=== PATIENT | male | born 1960 | race African-American/Black ===

== ENCOUNTER 2016-07-18 07:33 | Emergency (ER) | payer OTHER ==
[~2016-07-18] VITALS: Ht 177.8 cm; Wt 139.3 kg
--- NOTE | 2016-07-18 07:50 | ED GENERAL ADULT ---
History of Present Illness General Chief Complaint: Epistaxis/Nasal Foreign Body Stated Complaint: EPISTAXIS Source: patient Exam Limitations: no limitations Vital Signs & Intake/Output Vital Signs & Intake/Output Vital Signs Date Time Temp Pulse Resp B/P Pulse O2 O2 Flow FiO2 Ox Delivery Rate 07/18 0813 146/83 07/18 0850 96.8 88 20 200/120 07/18 0737 96.8 103 20 200/120 98 Room Air Allergies Coded Allergies: No Known Allergies (07/18/16) Reconcile Medications Lisinopril/Hydrochlorothiazide (Lisinopril-Hctz 20-25 MG Tab) 20 MG-25 MG TABLET 1 TAB PO DAILY HEART (Reported) Triage Note: PT TO ED C/O EPISTAXIS X 15 MINS. DENIES BEING ON ASA OR COUMADIN. Triage Nurses Notes Reviewed? yes Onset: Abrupt Duration: day(s): Timing: recent history HPI: 07/18/16 8:32 am 55-year-old man presented with left-sided epistaxis that began this morning. He says he does have a cold he took an [id number] cold medication this morning and so he didn't take his blood pressure medication. His blood pressure was 200/120. He denies chest pain shortness of breath or other complaints. The patient stated that he had epistaxis, blood was gushing from the left nares earlier this morning and wouldn't stop, On physical exam he does have a small septal abrasion that was ozzing at [place] area in his left nares. Afrin was inserted and this was cauterized with silver nitrate. He was given his a.m. dose of blood pressure medication and his pressure will be repeated. The onset of the symptoms were abrupt, the duration was just this morning, the severity was significant as his symptoms required him to come to the emergency department for care. He has associated epistaxis and hypertension. Past History Travel History Traveled to [place] past 21 day No Medical History Any Pertinent Medical History? see below for history Cardiovascular: hypertension Tetanus Vaccine: Surgical History Surgical History: non-contributory Psychosocial History What is your primary language Kyr[place]z Tobacco Use: Never used ETOH Use: denies use Illicit Drug Use: denies illicit drug use Family History Hx Contributory? No Review of Systems Review of Systems Constitutional: Denies: fever. EENTM: Reports: nasal congestion, epistaxis. Respiratory: Denies: short of breath. Cardiovascular: Reports: no symptoms. GI: Reports: no symptoms. Genitourinary: Reports: no symptoms. Musculoskeletal: Reports: no symptoms. Skin: Reports: no symptoms. Neurological/Psychological: Reports: no symptoms. Hematologic/Endocrine: Reports: bleeding. Physical Exam Physical Exam General Appearance: no apparent distress, alert, awake, anxious, mild distress Head: atraumatic Eyes: Bilateral: normal appearance, PERRL, EOMI. Ears, Nose, Throat: left septal abrasion Neck: normal inspection, supple, full range of motion Respiratory: normal breath sounds, chest non-tender Cardiovascular: regular rate/rhythm Peripheral Pulses: 4+ radial (R), 4+ radial (L) Back: normal range of motion Extremities: normal inspection, normal range of motion, no edema Neurologic/Psych: no motor/sensory deficits, awake, alert, oriented x 3 Skin: intact, normal color, warm/dry Core Measures ACS in differential dx? No CVA/TIA Diagnosis: No Severe Sepsis Present: No Septic Shock Present: No Progress Differential Diagnoses I considered the following diagnoses in my evaluation of the patient: [ Coagulopathy, anemia, hypertension, epistaxis,] Plan of Care: Orders Procedure Date/time Status Vital Signs 07/18 0833 Active Initial ED EKG: none Departure Departure Disposition: HOME OR SELF CARE Condition: Stable Clinical Impression Primary Impression: Epistaxis Secondary Impressions: Hypertension Referrals: KATHI BARBOSA,ODALIS Brush (PCP/Family) Departure Forms: Customer Survey General Discharge Information Critical Care Note Critical Care Note Critical Care Time: non-applicable
[2016-07-18] MEDS ORDERED: LISINOPRIL-HCT1 EAC1 PO (08:02)
[2016-07-18 09:13] VITALS: BP 146/83
== END 2016-07-18 09:19 ==
LOC: ERH 07:33
DX: R04.0 Epistaxis (principal); I10 Essential (primary) hypertension